=== PATIENT | female | born 1975 | race Hispanic/Latino ===

== ENCOUNTER 2017-12-06 14:25 | Emergency (ER) | payer SELFPAY ==
[~2017-12-06] VITALS: Ht 160 cm; Wt 113.4 kg
[2017-12-06] MEDS ORDERED: ONDANSETRON HCL INJ 2 MG/ML VIAL IV STA (14:32)
[2017-12-06] MEDS ORDERED: ONDANSETRON HCL 4 MG ORAL DISINTEGRATING TAB PO ONE (14:45)
[2017-12-06] MEDS ORDERED: SODIUM CHLORIDE 0.9% 1000ML 1,000 ML IV STA (14:47)
[2017-12-06] MEDS ORDERED: BUSPIRONE HCL5 MG PO (14:49)
[2017-12-06] MEDS ORDERED: SERTRALINE HCL100 MG PO (14:49)
[2017-12-06] MEDS ORDERED: ONDANSETRON HCL 4 MG ORAL DISINTEGRATING TAB ONE (15:34)
[2017-12-06 15:37] LABS: CLARITY,URINE SL CLOUDY (CLEAR); COLOR,URINE RED (YELLOW); KETONES,URINE NEGATIVE (NEGATIVE); LEUKOCYTE ESTERASE ,URINE NEGATIVE (NEGATIVE); NITRITE,URINE NEGATIVE (NEGATIVE); PROTEIN,URINE DIPSTICK 2+ (NEGATIVE)
[2017-12-06 15:38] LABS: BACTERIA,URINE FEW /HPF; BILIRUBIN,URINE NEGATIVE (NEGATIVE); EPITHELIAL CELLS,URINE FEW /LPF; RBC,URINE >50 /HPF (0-5); URINE UROBILINOGEN 0.2 mg/dL (0.2 - 1); WBC,URINE (MAN) 0-5 /HPF (0-5)
--- NOTE | 2017-12-06 15:42 | Diagnostic Imaging Report ---
History: Dizziness Comparison studies: None Technique: Axial images were obtained from the skull base to the vertex. Coronal and sagittal reconstructions obtained from the axial data. Findings: Scalp/skull: No abnormalities. No fractures, blastic or lytic lesions. Extra-axial spaces: No masses. No fluid collections. Brain sulci: Appropriate for age. Ventricles: Normal in size and configuration. No hydrocephalus. Parenchyma: No abnormal densities. No masses, hemorrhage, acute or chronic cortical vascular insults. Sellar/suprasellar region: No abnormalities Craniocervical junction: Patent foramen magnum. No Chiari one malformation. IMPRESSION: No abnormalities. Preliminary report provided by Dr. Jean on December 06, 2017 at 1542 hours Signed by: Dr. Jose Humphrey M.D. on 12/06/2017 5:18 PM
[2017-12-06 16:13] LABS: BASOPHILS % 0.4 % (0.0-1.0); EOSINOPHILS # (AUTO) 0.2 (0.0-0.4); EOSINOPHILS % 1.7 % (0.0-6.0); HEMATOCRIT 33.5 % (34.2-44.1); HEMOGLOBIN 10.4 g/dL (12.0-16.0); LYMPHOCYTES # (AUTO) 3.2 (1.0-3.2); LYMPHOCYTES % 33.7 % (18.0-39.1); MEAN CORPUSCULAR HEMOGLOBIN 25.5 pg (28-32); MEAN CORPUSCULAR VOLUME 82.1 fL (81-99); MONOCYTES # (AUTO) 0.6 (0.2-0.8); MONOCYTES % 5.8 % (4.4-11.3); NEUTROPHILS # (AUTO) 5.5 (2.1-6.9); PLATELET COUNT 253 x10e3/uL (140-360); RED BLOOD COUNT 4.08 x10e6/uL (3.6-5.1); RED CELL DISTRIBUTION WIDTH 15.4 % (11.7-14.4)
[2017-12-06 16:36] LABS: ALANINE AMINOTRANSFERASE 10 IU/L (0-55); ALBUMIN 3.1 g/dL (3.5-5.0); ALBUMIN/GLOBULIN RATIO 0.9 (0.8-2.0); ALKALINE PHOSPHATASE 66 IU/L (40-150); ANION GAP 10.6 mmol/L (8-16); BLOOD UREA NITROGEN 14 mg/dL (7-26); BUN/CREATININE RATIO 18 (6-25); CALCIUM 9.5 mg/dL (8.4-10.2); CARBON DIOXIDE 26 mmol/L (22-29); CHLORIDE 106 mmol/L (98-107); CREATINE KINASE 88 IU/L (29-168); EST GLOMERULAR FILTRATION RATE > 60 ML/MIN (60-); GLUCOSE 97 mg/dL (74-118); POTASSIUM 3.6 mmol/L (3.5-5.1); SODIUM 139 mmol/L (136-145)
[2017-12-06] MEDS ORDERED: IBUPROFEN 600 MG TAB PO STA (16:45)
== END 2017-12-06 18:05 | disposition home or self-care (01) ==
LOC: ER 14:25
DX: R42 Dizziness and giddiness (principal); R53.1 Weakness; R51 Headache; B34.9 Viral infection, unspecified; F41.9 Anxiety disorder, unspecified
CPT/HCPCS: 36415; 70450; 80053; 81001; 82550; 82553; 84484; 84702; 85025; 87086; 93005; 99284; J7030

== ENCOUNTER 2018-06-18 11:25 | Emergency (ER) | payer SELFPAY ==
[~2018-06-18] VITALS: Ht 160 cm; Wt 113.4 kg
[~2018-06-18 11:25] MED LIST: BUSPIRONE HCL5 MG PO; SERTRALINE HCL100 MG PO
--- OUTSIDE RECORDS SUMMARY | 2018-06-18 11:27 | XMS REPORT ---
Author Author [facility] Address Unknown Phone Unavailable Care Team [facility]iders [facility] Name Role Phone Emma GRUBER Unavailable Unavailable Problems This patient has no known problems. Allergies, Adverse Reactions, Alerts This patient has no known allergies or adverse reactions. Medications This patient has no known medications. 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 Coronal and sagittal reconstructions obtained from the axial data. Findings: Scalp/skull: No abnormalities. No fractures, blastic or lytic lesions. Extra-axial spaces: No masses. No fluid collections. Brain sulci: Appropriate for age. Ventricles: Normal in size and configuration. No hydrocephalus. Parenchyma: No abnormal densities. No masses, hemorrhage, acute or chronic cortical vascular insults. Sellar/suprasellar region: No abnormalities Craniocervical junction: Patent foramen magnum. No Chiari one malformation. IMPRESSION: No abnormalities. Preliminary report provided by Dr. Jean on December 06, 2017 at 1542 hours Signed by: Dr. Jose Humphrey M.D. on 12/06/2017 5:18 PM Dictated By: JOSE HUMPHREY MD, MD 17 Transcribed By: OLE on 12/06/171717 COPY TO: CORAL LAKHANI NP
[2018-06-18 12:30] LABS: BASOPHILS % 0.4 % (0.0-1.0); EOSINOPHILS # (AUTO) 0.3 (0.0-0.4); EOSINOPHILS % 3.7 % (0.0-6.0); HEMATOCRIT 36.4 % (34.2-44.1); HEMOGLOBIN 11.4 g/dL (12.0-16.0); LYMPHOCYTES # (AUTO) 3.7 (1.0-3.2); LYMPHOCYTES % 40.2 % (18.0-39.1); MEAN CORPUSCULAR HEMOGLOBIN 25.4 pg (28-32); MEAN CORPUSCULAR HGB CONC 31.3 g/dL (31-35); MEAN CORPUSCULAR VOLUME 81.1 fL (81-99); MONOCYTES # (AUTO) 0.5 (0.2-0.8); MONOCYTES % 5.6 % (4.4-11.3); NEUTROPHILS # (AUTO) 4.6 (2.1-6.9); NEUTROPHILS % 49.9 % (38.7-80.0); PLATELET COUNT 267 x10e3/uL (140-360); RED BLOOD COUNT 4.49 x10e6/uL (3.6-5.1); RED CELL DISTRIBUTION WIDTH 15.4 % (11.7-14.4)
[2018-06-18 12:47] LABS: CLARITY,URINE HAZY (CLEAR); COLOR,URINE YELLOW (YELLOW); KETONES,URINE NEGATIVE (NEGATIVE); LEUKOCYTE ESTERASE ,URINE NEGATIVE (NEGATIVE); NITRITE,URINE NEGATIVE (NEGATIVE); PROTEIN,URINE DIPSTICK NEGATIVE (NEGATIVE)
[2018-06-18 12:48] LABS: BILIRUBIN,URINE NEGATIVE (NEGATIVE); URINE UROBILINOGEN 0.2 mg/dL (0.2 - 1)
[2018-06-18 12:52] LABS: BACTERIA,URINE FEW /HPF; EPITHELIAL CELLS,URINE FEW /LPF; RBC,URINE 0-5 /HPF (0-5); WBC,URINE (MAN) 0-5 /HPF (0-5)
[2018-06-18 12:56] LABS: ALANINE AMINOTRANSFERASE 24 IU/L (0-55); ALBUMIN 3.5 g/dL (3.5-5.0); ALBUMIN/GLOBULIN RATIO 0.9 (0.8-2.0); ALKALINE PHOSPHATASE 68 IU/L (40-150); ANION GAP 13.9 mmol/L (8-16); BLOOD UREA NITROGEN 12 mg/dL (7-26); BUN/CREATININE RATIO 15 (6-25); CALCIUM 9.4 mg/dL (8.4-10.2); CARBON DIOXIDE 25 mmol/L (22-29); CHLORIDE 104 mmol/L (98-107); CREATINE KINASE 59 IU/L (29-168); EST GLOMERULAR FILTRATION RATE > 60 ML/MIN (60-); GLUCOSE 118 mg/dL (74-118); POTASSIUM 3.9 mmol/L (3.5-5.1); SODIUM 139 mmol/L (136-145)
--- NOTE | 2018-06-18 13:17 | Diagnostic Imaging Report ---
EXAMINATION: CHEST SINGLE (PORTABLE) INDICATION: CHEST PAIN COMPARISON: None FINDINGS: TUBES and LINES: None. LUNGS: Lungs are well inflated. Lungs are clear. There is no evidence of pneumonia or pulmonary edema. PLEURA: No pleural effusion or pneumothorax. HEART AND MEDIASTINUM: The cardiomediastinal silhouette is unremarkable. BONES AND SOFT TISSUES: No acute osseous lesion. Soft tissues are unremarkable. UPPER ABDOMEN: No free air under the diaphragm. IMPRESSION: No acute thoracic abnormality. Signed by: Dr. Elisabeth Cruz M.D. on 06/18/2018 1:13 PM
--- NOTE | 2018-06-18 13:26 | Diagnostic Imaging Report ---
CT BRAIN WO HISTORY: Headache, cough COMPARISON: Head CT 12/06/2017 TECHNIQUE: Noncontrast axial scans were obtained from skull base to the vertex. Coronal and sagittal reconstructions obtained from the axial data. One or more of the following dose reduction techniques were used: Automated exposure control, adjustment of the mA and/or kV according to patient size, and/or utilization of iterative reconstruction technique. DISCUSSION: Scalp/Skull: Unremarkable. Brain sulci: Appropriate for patient's age. Ventricles: Normal in size and configuration. No hydrocephalus. Extra-axial spaces: No masses or fluid collections. Parenchyma: No abnormal densities. No masses, hemorrhage, or large vascular territory acute infarct. Dural sinuses: No abnormal densities. Sellar/Suprasellar region: Intact. Skull base: Intact. Incidental findings: Nonspecific scattered paranasal sinus opacification is partially visualized. IMPRESSION: No intracranial abnormalities. Signed by: Dr. Randy Adams M.D. on 06/18/2018 1:23 PM
== END 2018-06-18 15:22 | disposition home or self-care (01) ==
LOC: ER 11:25
DX: R50.9 Fever, unspecified (principal); R05 Cough; H66.001 Acute suppurative otitis media without spontaneous rupture of ear drum, right ear; J06.9 Acute upper respiratory infection, unspecified; J01.00 Acute maxillary sinusitis, unspecified
CPT/HCPCS: 36415; 70450; 71045; 80053; 81001; 82550; 82553; 84484; 85025; 87400; 93005; 99284

== ENCOUNTER 2019-03-25 22:29 | Emergency (ER) | payer OTHER ==
[~2019-03-25] VITALS: Ht 160 cm; Wt 113.4 kg
[2019-03-25] MEDS ORDERED: ONDANSETRON HCL INJ 2MG/ML 2ML 2 MG/ML VIAL IV STA (22:40)
[2019-03-25] MEDS ORDERED: MORPHINE SULFATE INJ 4 MG/ML INJ 1ML IV STA (22:40)
--- NOTE | 2019-03-25 23:53 | Diagnostic Imaging Report ---
Examination: Single AP view of the chest. COMPARISON: 06/18/2018 INDICATION: Palpitations, chest pressure DISCUSSION: Lines/tubes: None. Lungs: The lungs are well inflated and clear. There is no evidence of pneumonia or pulmonary edema. Pleura: There is no pleural effusion or pneumothorax. Heart and mediastinum: The heart and the mediastinum are unremarkable. Bones and soft tissues: No acute bony abnormalities. IMPRESSION: 1. No acute cardiopulmonary abnormalities. Signed by: Dr. Dago Rutledge M.D. on 03/25/2019 11:50 PM
[2019-03-26 01:11] LABS: BASOPHILS % 0.3 % (0.0-1.0); EOSINOPHILS # (AUTO) 0.2 (0.0-0.4); EOSINOPHILS % 1.9 % (0.0-6.0); HEMATOCRIT 36.5 % (34.2-44.1); HEMOGLOBIN 10.9 g/dL (12.0-16.0); MEAN CORPUSCULAR HEMOGLOBIN 22.2 pg (28-32); MEAN CORPUSCULAR HGB CONC 29.9 g/dL (31-35); MEAN CORPUSCULAR VOLUME 74.3 fL (81-99); MONOCYTES # (AUTO) 0.6 (0.2-0.8); MONOCYTES % 6.7 % (4.4-11.3); NEUTROPHILS # (AUTO) 4.5 (2.1-6.9); NEUTROPHILS % 47.9 % (38.7-80.0); PLATELET COUNT 351 x10e3/uL (140-360); RED BLOOD COUNT 4.91 x10e6/uL (3.6-5.1); RED CELL DISTRIBUTION WIDTH 19.3 % (11.7-14.4)
[2019-03-26 01:32] LABS: ALANINE AMINOTRANSFERASE 58 IU/L (0-55); ALBUMIN 3.7 g/dL (3.5-5.0); ALBUMIN/GLOBULIN RATIO 0.9 (0.8-2.0); ALKALINE PHOSPHATASE 92 IU/L (40-150); ANION GAP 12.8 mmol/L (8-16); BLOOD UREA NITROGEN 9 mg/dL (7-26); BUN/CREATININE RATIO 11 (6-25); CALCIUM 9.5 mg/dL (8.4-10.2); CARBON DIOXIDE 24 mmol/L (22-29); CHLORIDE 107 mmol/L (98-107); CREATINE KINASE 105 IU/L (29-168); CREATININE, SERUM 0.81 mg/dL (0.57-1.11); EST GLOMERULAR FILTRATION RATE > 60 ML/MIN (60-); GLUCOSE 111 mg/dL (74-118); POTASSIUM 3.8 mmol/L (3.5-5.1); SODIUM 140 mmol/L (136-145)
[2019-03-26 01:44] LABS: CREATINE KINASE MB < 1.00 ng/mL (0-4.3)
[2019-03-26 02:10] LABS: HCG,QUANTITATIVE < 1.20 mIU/mL (0-10)
== END 2019-03-26 03:23 | disposition home or self-care (01) ==
LOC: ER 22:29
DX: R00.2 Palpitations (principal); R07.89 Other chest pain; I49.1 Atrial premature depolarization
CPT/HCPCS: 36415; 71045; 80053; 82550; 82553; 83880; 84484; 84702; 85025; 93005; 99283

== ENCOUNTER 2019-06-07 08:36 | Emergency (ER) | payer OTHER ==
[~2019-06-07] VITALS: Ht 160 cm; Wt 128.8 kg
[2019-06-07] MEDS ORDERED: SODIUM CHLORIDE 0.9% 1000ML 1,000 ML IV STA (08:53)
[2019-06-07] MEDS ORDERED: PANTOPRAZOLE 40 MG 10ML VIAL IV ONE (09:15)
[2019-06-07 09:35] LABS: BASOPHILS % 0.2 % (0.0-1.0); BILIRUBIN,URINE NEGATIVE (NEGATIVE); CLARITY,URINE CLEAR (CLEAR); COLOR,URINE YELLOW (YELLOW); EOSINOPHILS # (AUTO) 0.1 (0.0-0.4); EOSINOPHILS % 1.2 % (0.0-6.0); HEMATOCRIT 33.9 % (34.2-44.1); HEMOGLOBIN 10.1 g/dL (12.0-16.0); KETONES,URINE NEGATIVE (NEGATIVE); LEUKOCYTE ESTERASE ,URINE NEGATIVE (NEGATIVE); LYMPHOCYTES # (AUTO) 3.4 (1.0-3.2); LYMPHOCYTES % 32.1 % (18.0-39.1); MEAN CORPUSCULAR HEMOGLOBIN 22.3 pg (28-32); MEAN CORPUSCULAR HGB CONC 29.8 g/dL (31-35); MONOCYTES # (AUTO) 0.6 (0.2-0.8); MONOCYTES % 5.3 % (4.4-11.3); NEUTROPHILS # (AUTO) 6.4 (2.1-6.9); NEUTROPHILS % 60.7 % (38.7-80.0); NITRITE,URINE NEGATIVE (NEGATIVE); PLATELET COUNT 307 x10e3/uL (140-360); PROTEIN,URINE DIPSTICK NEGATIVE (NEGATIVE); RED BLOOD COUNT 4.52 x10e6/uL (3.6-5.1); RED CELL DISTRIBUTION WIDTH 17.5 % (11.7-14.4); URINE UROBILINOGEN 0.2 mg/dL (0.2 - 1)
[2019-06-07 09:44] LABS: BACTERIA,URINE RARE /HPF; EPITHELIAL CELLS,URINE FEW /LPF; RBC,URINE 0-5 /HPF (0-5); WBC,URINE (MAN) 0-5 /HPF (0-5)
--- NOTE | 2019-06-07 09:52 | Diagnostic Imaging Report ---
EXAMINATION: CHEST 2 VIEWS INDICATION: Abdominal pain COMPARISON: None FINDINGS: LINES/TUBES:EKG leads overlie the chest. LUNGS:The lungs are moderately inflated. No focal consolidation or pulmonary edema. PLEURA:No pleural effusion or pneumothorax. MEDIASTINUM:The cardiomediastinal silhouette appears normal in size and shape. BONES/SOFT TISSUES:No acute osseous injury. ABDOMEN:No free air under the diaphragm. IMPRESSION: No focal pneumonia or pulmonary edema. Signed by: Wei Webber MD on 06/07/2019 9:49 AM
[2019-06-07 09:55] LABS: ALANINE AMINOTRANSFERASE 22 IU/L (0-55); ALBUMIN 3.4 g/dL (3.5-5.0); ALKALINE PHOSPHATASE 96 IU/L (40-150); ANION GAP 12.1 mmol/L (8-16); BLOOD UREA NITROGEN 11 mg/dL (7-26); BUN/CREATININE RATIO 13 (6-25); CALCIUM 8.9 mg/dL (8.4-10.2); CARBON DIOXIDE 26 mmol/L (22-29); CHLORIDE 101 mmol/L (98-107); CREATINE KINASE 144 IU/L (29-168); CREATININE, SERUM 0.87 mg/dL (0.57-1.11); EST GLOMERULAR FILTRATION RATE > 60 ML/MIN (60-); GLUCOSE 193 mg/dL (74-118); LIPASE 28 U/L (8-78); POTASSIUM 4.1 mmol/L (3.5-5.1); SODIUM 135 mmol/L (136-145)
--- NOTE | 2019-06-07 10:14 | Diagnostic Imaging Report ---
EXAM: Right upper quadrant abdominal ultrasound INDICATION: Right upper quadrant pain COMPARISON: None. TECHNIQUE: Transverse and longitudinal images of the right upper quadrant abdomen were obtained FINDINGS: Liver: Size: 17.3 cm in the right midclavicular line, enlarged Appearance: Increased echogenicity, smooth contour Mass: No focal masses Gallbladder: No gallbladder distension, pericholecystic fluid, wall thickening, stone, or reported sonographic Masters's sign. Gallbladder wall measures 3 millimeters Bile Ducts: Intrahepatic Ducts: No dilatation Extrahepatic Ducts: Common bile duct measures 3 mm, no dilatation Pancreas: Visualized portions of the pancreatic head, neck and proximal body are normal. Kidney: The right kidney measures 11.9 cm without evidence of hydronephrosis or stone. Vessels: Aorta: Visualized portions are normal Inferior Vena Cava: Visualized portions are normal Main Portal Vein: 1.3 cm, normal size with hepatopetal flow. Free Fluid: No ascites or pleural effusion IMPRESSION: Hepatic steatosis and mild hepatomegaly. No cholelithiasis or sonographic evidence of cholecystitis. Signed by: Wei Webber MD on 06/07/2019 10:11 AM
[2019-06-07] MEDS ORDERED: SODIUM CHLORIDE 0.9% 1000ML 1,000 ML ONE (10:23)
== END 2019-06-07 10:51 | disposition home or self-care (01) ==
LOC: ER 08:36
DX: R10.13 Epigastric pain (principal); R11.0 Nausea; R07.89 Other chest pain
CPT/HCPCS: 36415; 71046; 76705; 80053; 81001; 82550; 82553; 83690; 84484; 85025; 93005; 99284; C9113; J7030

== ENCOUNTER 2019-12-18 13:00 | Emergency (ER) | payer OTHER ==
[~2019-12-18] VITALS: Ht 160 cm; Wt 128.8 kg
--- OUTSIDE RECORDS SUMMARY | 2019-12-18 13:03 | XMS REPORT ---
Author Author [facility] Organization [facility] Address 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 Allergies, Adverse Reactions, Alerts Allergy Name Allergy Type Status Severity Reaction(s) Onset Date Inacti ve Date Treating Clinician Comments Source Morphine Allergy to Substance Active Mild 2019-06-07 00:00:00 [facility] Medications Ordered Medication Name Filled Medication Name Start Date Stop Da te Current Medication? Ordering Clinician Indication Dosage Frequency Signature (SIG) Comments Components Source Buspirone Hcl 5 Mg Tablet Buspirone Hcl 5 Mg Tablet Yes 10 Twice A Day [facility] Sertraline Hcl 100 Mg Tablet Sertraline Hcl 100 Mg Tablet Y es 100 Bedtime [facility] Procedures Procedure Date / Time Performed Performing Clinician Sour e X-ray of chest, two views 2019-06-07 00:00:00 MILESCORAL [facility], [facility] US Gallbladder 2019-06-07 00:00:00 CORAL MILES [facility] X-ray of chest, single view 2019-03-25 00:00:00 CORAL MILES [facility] Encounters Start Date/Time End Date/Time Encounter Type Admission Type Attendi [facility] Care Department Encounter ID Source 2019-06-07 08:36:00 2019-06-07 10:51:00 Departed Emergency Room 1 CORAL MILES [facility] [id number] [facility] 2019-03-25 22:29:00 2019-03-26 03:23:00 Departed Emergency Room 1 GINGER CORAL [facility] [id number] [facility] 2018-06-18 11:25:00 2018-06-18 15:22:00 Departed Emergency Room 1 JEROMY HENRY [facility] [id number] [facility] 2017-12-06 14:25:00 2017-12-06 18:05:00 Departed Emergency Room 1 LIAM GRUBER [facility] [id number] [facility] Results Test Description Test Time Test Comments Results Result Comments Source US GALLBLADDER 2019-06-07 10:09:00 [facility] [address] [place] [address] Patient Name: HANS MCCARTHY MR #: [id number] : 1975 Age/Sex: 43/F Req #: [id number] Adm Physician: Ordered by: CORAL MILES DO Report #: [id number] Location: ER Room/Bed: Procedure: [id number] US/US GALLBLADDER Exam Date: Exam Time: REPORT STATUS: Signed EXAM: Right upper quadrant abdominal ultrasound INDICATION: Right upper quadrant pain COMPARISON: None. TECHNIQUE: Transverse and longitudinal images of the right upper quadrant abdomen were obtained FINDINGS: Liver: Size: 17.3 cm in the right midclavicular line, enlarged Appearance: Increased echogenicity, smooth contour Mass: No focal masses Gallbladder: No gallbladder distension, pericholecystic fluid, wall thickening, stone, or reported sonographic Masters's sign. Gallbladder wall measures 3 millimeters Bile Ducts: Intrahepatic Ducts: No dilatation Extrahepatic Ducts: Common bile duct measures 3 mm, no dilatation Pancreas: Visualized portions of the pancreatic head, neck and proximal body are normal. Kidney: The right kidney measures 11.9 cm without evidence of hydronephrosis or stone. Vessels: Aorta: Visualized portions are normal Inferior Vena Cava: Visualized portions are normal Main Portal Vein: 1.3 cm, normal size with hepatopetal flow. Free Fluid: No ascites or pleural effusion IMPRESSION: Hepatic steatosis and mild hepatomegaly. No cholelithiasis or sonographic evidence of cholecystitis. Signed by: Melissa Ram MD on 06/07/2019 10:11 AM Dictated By: MELISSA RAM MD 1011 Transcribed By: OLE on 06/07/19 1011 COPY TO: CORAL MILES DO Sodium Level 2019-06-07 10:04:00 Test Item Sodium Level (test code = 2951-2) 135 136-145 [facility] Jlmqs5405-69-08 10:04:00* Test Item Value Reference Range Interpretation Comments Potassium Level (test code = 2823-3) 4.1 3.5-5.1 [facility] TexasChloride Yxtbn8038-71-30 10:04:00* Test Item Value Reference Range Interpretation Comments Chloride Level (test code = 2075-0) 101 98-107 [facility] TexasCarbon Dioxide Ybscw3881-81-96 10:04:00* Test Item Value Reference Range Interpretation Comments Carbon Dioxide Level (test code = 2028-9) 26 22-29 [facility] TexasAnion [id number] 10:04:00* Test Item Value Reference Range Interpretation Comments Anion Gap (test code = 75849-0) 12.1 8-16 [facility] TexasBlood Urea Xltwdxzx2541-57-34 10:04:00* Test Item Value Reference Range Interpretation Comments Blood Urea Nitrogen (test code = 3094-0) 11 7-26 [facility] TexasCreatinine2019-11-12 10:04:00* Test Item Value Reference Range Interpretation Comments Creatinine (test code = 2160-0) 0.87 0.57-1.11 [facility] TexasBUN/Creatinine Qrdxa8168-28-77 10:04:00* Test Item Value Reference Range Interpretation Comments BUN/Creatinine Ratio (test code = 3097-3) 13 01-18 [facility] TexasEstimat Glomerular Filtration Rate 2019-06-07 10:04:00* Test Item Value Reference Range Interpretation Comments Estimat Glomerular Filtration Rate (test code = 981486174) > 60 >60 Ranges were taken from the National Kidney Disease Education Program and the [facility] literature.Reference ranges:60 or greater: Tpqpiy48-77 ( for 3 consecutive months): Chronic kidney disease 15 or less: Kidney failureWoman's Hospital of TexasGlucose Uqqjp7749-27-86 10:04:00* Test Item Value Reference Range Interpretation Comments Glucose Level (test code = XXQ7378) 193 74-118 [facility] TexasCalcium Qxpys0336-56-51 10:04:00* Test Item Value Reference Range Interpretation Comments Calcium Level (test code = 12632-1) 8.9 8.4-10.2 [facility] TexasTotal Bcndzhlcf8062-05-54 10:04:00* Test Item Value Reference Range Interpretation Comments Total Bilirubin (test code = 1975-2) 0.3 0.2-1.2 [facility] TexasAspartate Amino Transf (AST/SGOT) 2019-06-07 10:04:00* Test Item Value Reference Range Interpretation Comments Aspartate Amino Transf (AST/SGOT) (test code = Aspartate Amino Transf (AST/SGOT)) 22 5-34 [facility] TexasAlanine Aminotransferase (ALT/SGPT) 2019-06-07 10:04:00* Test Item Value Reference Range Interpretation Comments Alanine Aminotransferase (ALT/SGPT) (test code = 1742-6) 22 0-55 [facility] TexasTotal Lvhciiq3972-62-62 10:04:00* Test Item Value Reference Range Interpretation Comments Total Protein (test code = 2885-2) 6.9 6.5-8.1 [facility] TexasAlbumin2019-11-12 10:04:00* Test Item Value Reference Range Interpretation Comments Albumin (test code = 1751-7) 3.4 3.5-5.0 [facility] TexasGlobulin2019-11-12 10:04:00* Test Item Value Reference Range Interpretation Comments Globulin (test code = 39902-0) 3.5 2.3-3.5 [facility] TexasAlbumin/Globulin Dorqr8909-26-79 10:04:00 * Test Item Value Reference Range Interpretation Comments Albumin/Globulin Ratio (test code = 1759-0) 1.0 0.8-2.0 [facility] TexasAlkaline Ptvuwfigeyc7360-88-03 10:04:00* Test Item Value Reference Range Interpretation Comments Alkaline Phosphatase (test code = 6768-6) 96 40-150 [facility] TexasCreatine Oenghn1999-72-08 10:04:00* Test Item Value Reference Range Interpretation Comments Creatine Kinase (test code = 2157-6) 144 29-168 [facility] TexasCreatine Kinase ZC2436-29-11 10:04:00* Test Item Value Reference Range Interpretation Comments Creatine Kinase MB (test code = 06820-5) 1.40 0-5.0 [facility] TexasTroponin I7495-34-14 10:04:00* Test Item Value Reference Range Interpretation Comments Troponin I (test code = QRN7797) 0.009 0-0.300 [facility] TexasLipase2019-11-12 10:04:00* Test Item Value Reference Range Interpretation Comments Lipase (test code = 3040-3) 28 8-78 [facility] TexasCHEST 2 FRQNW0649-03-69 09:48:00 [facility] [address] [place] [address] Patient Name: HANS MCCARTHY MR #: [id number] : 1975 Age/Sex: 43/F Req #: [id number] Adm Physician: Ordered by: CORAL MILES DO Report #: [id number] Location: ER Room/Bed: Procedure: [id number] DX/CH EST 2 VIEWS Exam Date: 06/07/19 Exam Time: 914 REPORT STATUS: Signed EXAMINATION: CHEST 2 VIEWS INDICATION: Abdominal pain COMPARISON: None FINDINGS: LINES/TUBES:EKG leads overlie the chest. LUNGS:The lungs a re moderately inflated. No focal consolidation or pulmonary edema. PLEURA :No pleural effusion or pneumothorax. MEDIASTINUM:The cardiomediastinal phill houette appears normal in size and shape. BONES/SOFT TISSUES:No acute osseo us injury. ABDOMEN:No free air under the diaphragm. IMPRESSION: No focal pneumonia or pulmonary edema. Signed by: Melissa Ram MD on 9:49 AM Dictated By: MELISSA RAM MD 8 Transcribed By: OLE on 06/07/19948 COPY TO: CORAL MILES DO Urine FMG8099-12-18 09:44:00* Test Item Value Reference Range Interpretation Comments Urine WBC (test code = 5821-4) 0-5 0-5 [facility] TEP3827-65-84 09:44:00* Test Item Value Reference Range Interpretation Comments Urine RBC (test code = 64117-5) 0-5 0-5 [facility] TexasU[facility] Xfjindhf4053-91-32 09:44:00* Test Item Value Reference Range Interpretation Comments Urine Bacteria (test code = 62865-1) RARE NONE [facility] Texas[facility] Epithelial Jgatn7059-88-24 09:44:00 * Test Item Value Reference Range Interpretation Comments Urine Epithelial Cells (test code = 45036-4) FEW NONE [facility] TexasU[facility] Lyufl2042-43-37 09:41:00* Test Item Value Reference Range Interpretation Comments Urine Color (test code = 5778-6) YELLOW YELLOW [facility] TexasUrine Cvsahku9003-86-13 09:41:00* Test Item Value Reference Range Interpretation Comments Urine Clarity (test code = 75271-4) CLEAR CLEAR [facility] TexasU[facility] Specific Kkdbpgc1545-08-95 09:41:00 * Test Item Value Reference Range Interpretation Comments Urine Specific [place] (test code = 5811-5) 1.020 1.010-1.02 5 [facility] TexasUrine hO6387-14-31 09:41:00* Test Item Value Reference Range Interpretation Comments Urine pH (test code = 47397-9) 7 5-7 [facility] Leukocyte Pyjgastq3224-43-47 09:41:00* Test Item Value Reference Range Interpretation Comments Urine Leukocyte Esterase (test code = 43000-8) NEGATIVE NEGATIV E [facility] TexasU[facility] Rpbzdou7292-84-88 09:41:00* Test Item Value Reference Range Interpretation Comments Urine Nitrite (test code = 33439-5) NEGATIVE NEGATIVE [facility] TexasU[facility] Bxcfesh8588-23-06 09:41:00* Test Item Value Reference Range Interpretation Comments Urine Protein (test code = 42133-7) NEGATIVE NEGATIVE [facility] TexasU[facility] Glucose (UA)2019-06-07 09:41:00* Test Item Value Reference Range Interpretation Comments Urine Glucose (UA) (test code = 72398-9) NEGATIVE NEGATIVE [facility] TexasUrine Mmbkzct7660-40-38 09:41:00* Test Item Value Reference Range Interpretation Comments Urine Ketones (test code = 47289-1) NEGATIVE NEGATIVE [facility] TexasU[facility] Sypiuohluaaq7765-20-21 09:41:00* Test Item Value Reference Range Interpretation Comments Urine Urobilinogen (test code = 69499-4) 0.2 0.2-1 [facility] TexasU[facility] Hpfdjasla2661-59-55 09:41:00* Test Item Value Reference Range Interpretation Comments Urine Bilirubin (test code = 1977-8) NEGATIVE NEGATIVE [facility] TexasU[facility] Rzpsp2796-27-50 09:41:00* Test Item Value Reference Range Interpretation Comments Urine Blood (test code = 57474-3) NEGATIVE NEGATIVE [facility] TexasWhite Blood Zbufh1651-43-09 09:39:00* Test Item Value Reference Range Interpretation Comments White Blood Count (test code = 6690-2) 10.53 4.8-10.8 [facility] TexasRed Blood Lnets4431-62-25 09:39:00* Test Item Value Reference Range Interpretation Comments Red Blood Count (test code = 789-8) 4.52 3.6-5.1 [facility] TexasHemoglobin2019-11-12 09:39:00* Test Item Value Reference Range Interpretation Comments Hemoglobin (test code = 64109-8) 10.1 12.0-16.0 [facility] TexasHematocrit2019-11-12 09:39:00* Test Item Value Reference Range Interpretation Comments Hematocrit (test code = 4544-3) 33.9 34.2-44.1 [facility] TexasMean Corpuscular Xzusmp4207-10-52 09:39:00* Test Item Value Reference Range Interpretation Comments Mean Corpuscular Volume (test code = 787-2) 75.0 81-99 [facility] TexasMean Corpuscular Mexhxgqkgh0264-06-61 09:39:00* Test Item Value Reference Range Interpretation Comments Mean Corpuscular Hemoglobin (test code = 785-6) 22.3 28-32 [facility] TexasMean Corpuscular Hemoglobin Concent 2019-06-07 09:39:00* Test Item Value Reference Range Interpretation Comments Mean Corpuscular Hemoglobin Concent (test code = 786-4) 29.8 31-35 [facility] TexasRed Cell Distribution Xvfzz2452-05-98 09:39:00* Test Item Value Reference Range Interpretation Comments Red Cell Distribution Width (test code = 59080-7) 17.5 11.7 -14.4 [facility] TexasPlatelet Jxkin8923-99-40 09:39:00* Test Item Value Reference Range Interpretation Comments Platelet Count (test code = 777-3) 307 140-360 [facility] TexasNeutrophils (%) (Auto)2019-06-07 09:39:00 * Test Item Value Reference Range Interpretation Comments Neutrophils (%) (Auto) (test code = 54790-7) 60.7 38.7-80.0 [facility] TexasLymphocytes (%) (Auto)2019-06-07 09:39:00 * Test Item Value Reference Range Interpretation Comments Lymphocytes (%) (Auto) (test code = 736-9) 32.1 18.0-39.1 [facility] TexasMonocytes (%) (Auto)2019-06-07 09:39:00* Test Item Value Reference Range Interpretation Comments Monocytes (%) (Auto) (test code = 5905-5) 5.3 4.4-11.3 [facility] TexasEosinophils (%) (Auto)2019-06-07 09:39:00 * Test Item Value Reference Range Interpretation Comments Eosinophils (%) (Auto) (test code = 713-8) 1.2 0.0-6.0 [facility] TexasBasophils (%) (Auto)2019-06-07 09:39:00* Test Item Value Reference Range Interpretation Comments Basophils (%) (Auto) (test code = 706-2) 0.2 0.0-1.0 [facility] TexasIM GRANULOCYTES %2019-06-07 09:39:00* Test Item Value Reference Range Interpretation Comments IM GRANULOCYTES % (test code = IM GRANULOCYTES %) 0.5 0.0- 1.0 [facility] TexasNeutrophils # (Auto)2019-06-07 09:39:00* Test Item Value Reference Range Interpretation Comments Neutrophils # (Auto) (test code = 751-8) 6.4 2.1-6.9 [facility] TexasLymphocytes # (Auto)2019-06-07 09:39:00* Test Item Value Reference Range Interpretation Comments Lymphocytes # (Auto) (test code = 21491-0) 3.4 1.0-3.2 [facility] TexasMonocytes # (Auto)2019-06-07 09:39:00* Test Item Value Reference Range Interpretation Comments Monocytes # (Auto) (test code = 742-7) 0.6 0.2-0.8 [facility] TexasEosinophils # (Auto)2019-06-07 09:39:00* Test Item Value Reference Range Interpretation Comments Eosinophils # (Auto) (test code = 711-2) 0.1 0.0-0.4 [facility] TexasBasophils # (Auto)2019-06-07 09:39:00* Test Item Value Reference Range Interpretation Comments Basophils # (Auto) (test code = 704-7) 0.0 0.0-0.1 [facility] TexasAbsolute Immature Granulocyte (auto 2019-06-07 09:39:00* Test Item Value Reference Range Interpretation Comments Absolute Immature Granulocyte (auto (eduardo t code = Absolute Immature Granulocyte (auto) 0.05 0-0.1 [facility] TexasHuman Chorionic Gonadotropin, Quant 2019-03-26 02:13:00* Test Item Value Reference Range Interpretation Comments Human Chorionic Gonadotropin, Quant (test code = 72625-4) < 1.20 0-10 [facility] TexasB-Type Natriuretic Rwcukzt9055-26-38 01:50:00* Test Item Value Reference Range Interpretation Comments B-Type Natriuretic Peptide (test code = 12166-7) < 12.0 0-100 [facility] TexasCHEST SINGLE (NOT PORTABLE)2019-03-25 23:48:00 [facility] [address] [place] [address] Patient Name: HANS MCCARTHY MR #: [id number] : 1975 Age/Sex: 43/F Req #: [id number] Adm Physician: Ordered by: CORAL MILES DO Report #: [id number] Location: ER Room/Bed: Procedure: [id number] D X/CHEST SINGLE (NOT PORTABLE) Exam Date: 03/25/19 Ex am Time: 2325 REPORT STATUS: Signed Examination: Single AP view of the chest. COMPARISON: 06/18/2018 I NDICATION: Palpitations, chest pressure DISCUSSION: Lines/tubes: None. Lungs: The lungs are well inflated and clear. There is no evidence of pneumonia or pulmonary edema. Pleura: There is no pleural effusion or pneumothorax. Heart and mediastinum: The heart and the mediastinum are un remarkable. Bones and soft tissues: No acute bony abnormalities. IM PRESSION: 1. No acute cardiopulmonary abnormalities. Signed by: Dr. Micki Rutledge M.D. on 03/25/2019 11:50 PM Dictated By: MICKI RUTLEDGE MD 49 Transcribed By: ABEBE HERNANDEZ on 03/25/19 235 COPY TO: CORAL MILES DO CT BRAIN WO 2018-06-18 13:20:[address] [address] Patient Name: HANS MCCARTHY MR #: [id number] : 1975 Age/Sex: 42/F Req #: [id number] Adm Physician: Ordered by: JEROMY HENRY MD Report #: [id number] Location: ER Room/Bed: Procedure: [id number] C T/CT BRAIN WO Exam Date: 06/18/18 Exam Time: 1254 REPORT STATUS: Signed CT BRAIN WO HISTORY: Headache, cough COMPARISON: Head CT 12/06/2017 TECHNIQUE: Noncontrast axial scans were obtained from skull base to the vertex. Coronal and sagittal reconstructions obtained from the axial data. One or more of the following dose reduction techniques were used: Automated exposure control, adjustment of the mA and/or kV according to patient size, and/or utilization of iterative reconstruction technique. DISCUSSION: Scalp/Skull: Unre markable. Brain sulci: Appropriate for patient's age. Ventricles: Normal in size and configuration. No hydrocephalus. Extra-axial spaces: No masses or fl uid collections. Parenchyma: No abnormal densities. No masses, he morrhage, or large vascular territory acute infarct. Dural sinuses: No abn ormal densities. Sellar/Suprasellar region: Intact. Skull base: Intact. In cidental findings: Nonspecific scattered paranasal sinus opacification is part ially visualized. IMPRESSION: No intracranial abnormalities. Signed by: Dr. Randy Adams M.D. on 06/18/2018 1:23 PM Dictated By: RANDY ADAMS MD 1 323 Transcribed By: OLE on 06/18/18 1324 COPY TO: JEROMY HENRY MD CHEST SINGLE (PORTABLE)2018-06-18 13:13:00 [place] [address] Patient Name: HANS MCCARTHY MR #: [id number] : 1975 Age/Sex: 42/F Req #: [id number] Adm Physician: Ordered by: JEROMY HENRY MD Report #: [id number] Location: ER Room/Bed: Procedure: [id number] D X/CHEST SINGLE (PORTABLE) Exam Date: 06/18/18 Exam T josiane: 1254 REPORT STATUS: Signed EXAMINATION: CHEST SINGLE (PORTABLE) INDICATION: CHEST PAIN CO MPARISON: None FINDINGS: TUBES and LINES: None. LUNGS: Lungs are well inflated. Lungs are clear. There is no evidence of pneumonia or p ulmonary edema. PLEURA: No pleural effusion or pneumothorax. HEART AN D MEDIASTINUM: The cardiomediastinal silhouette is unremarkable. BONES AND SOFT TISSUES: No acute osseous lesion. Soft tissues are unremarkable. UPPER ABDOMEN: No free air under the diaphragm. IMPRESSION: No a cute thoracic abnormality. Signed by: Dr. Elisabeth Boudreaux M.D. on 06/18/2018 1:13 PM Dictated By: JESSEE BOUDREAUX MD, MD Electronically Sign ed By: JESSEE BOUDREAUX MD, MD on 06/18/18 1313 Transcribed By: OLE on 8 1313 COPY TO: JEROMY HENRY MD CT BRAIN [place] [address] Patient Name: HANS MCCARTHY MR #: [id number] : 1975 Age/Sex: 42/F Req #: [id number] Adm Physician: Ordered by: CORAL LAKHANI NP Report #: [id number] Location: ER Room/Bed: Procedure: [id number] CT/CT BRAIN WO Exam Date : 12/06/17 Exam Time: 1520 REPORT STATUS: Summer d History: Dizziness Comparison studies: None Technique: Axia l images were obtained from the skull base to the vertex. Coronal and sagitt al reconstructions obtained from the axial data. Findings: Scalp/skull : No abnormalities. No fractures, blastic or lytic lesions. Extra-axial spaces: No masses. No fluid collections. Brain sulci: Appropriate for a ge. Ventricles: Normal in size and configuration. No hydrocephalus. Paren chyma: No abnormal densities. No masses, hemorrhage, acute or chronic chris ical vascular insults. Sellar/suprasellar region: No abnormalities Cranio cervical junction: Patent foramen magnum. No Chiari one malformation. IMPR ESSION: No abnormalities. Preliminary report provided by Dr. Ted french December 06, 2017 at 1542 hours Signed by: Dr. Jose Zarate M.D. on 11/24 5:18 PM Dictated By: JOSE ZARATE MD, MD Electronically Si gned By: JOSE ZARATE MD, MD on 12/06/171717 Transcribed By: OLE on 12/06/171717 COPY TO: CORAL LAKHANI NP
[2019-12-18] MEDS ORDERED: SODIUM CHLORIDE 0.9% 1000ML 1,000 ML IV STA (13:40)
[2019-12-18 13:47] LABS: BASOPHILS % 0.1 % (0.0-1.0); EOSINOPHILS # (AUTO) 0.1 (0.0-0.4); EOSINOPHILS % 1.5 % (0.0-6.0); HEMATOCRIT 36.1 % (34.2-44.1); HEMOGLOBIN 10.6 g/dL (12.0-16.0); LYMPHOCYTES # (AUTO) 3.4 (1.0-3.2); LYMPHOCYTES % 35.8 % (18.0-39.1); MEAN CORPUSCULAR HEMOGLOBIN 22.6 pg (28-32); MEAN CORPUSCULAR HGB CONC 29.4 g/dL (31-35); MEAN CORPUSCULAR VOLUME 76.8 fL (81-99); MONOCYTES # (AUTO) 0.4 (0.2-0.8); MONOCYTES % 4.7 % (4.4-11.3); NEUTROPHILS # (AUTO) 5.4 (2.1-6.9); NEUTROPHILS % 57.6 % (38.7-80.0); PLATELET COUNT 335 x10e3/uL (140-360); RED CELL DISTRIBUTION WIDTH 16.9 % (11.7-14.4)
[2019-12-18 13:51] LABS: CLARITY,URINE SL CLOUDY (CLEAR); COLOR,URINE ORANGE (YELLOW); LEUKOCYTE ESTERASE ,URINE NEGATIVE (NEGATIVE)
[2019-12-18 13:52] LABS: BILIRUBIN,URINE NEGATIVE (NEGATIVE); KETONES,URINE NEGATIVE (NEGATIVE); NITRITE,URINE NEGATIVE (NEGATIVE); PROTEIN,URINE DIPSTICK 2+ (NEGATIVE); URINE UROBILINOGEN 0.2 mg/dL (0.2 - 1)
[2019-12-18 13:53] LABS: PREGNANCY TEST, URINE NEGATIVE (NEGATIVE)
[2019-12-18 14:00] LABS: ALANINE AMINOTRANSFERASE 33 IU/L (0-55); ALBUMIN 3.6 g/dL (3.5-5.0); ALBUMIN/GLOBULIN RATIO 0.9 (0.8-2.0); ALKALINE PHOSPHATASE 80 IU/L (40-150); ANION GAP 17.2 mmol/L (8-16); CALCIUM 9.5 mg/dL (8.4-10.2); CARBON DIOXIDE 20 mmol/L (22-29); CHLORIDE 106 mmol/L (98-107); CREATINE KINASE 71 IU/L (29-168); CREATININE, SERUM 0.94 mg/dL (0.57-1.11); EST GLOMERULAR FILTRATION RATE > 60 ML/MIN (60-); GLUCOSE 188 mg/dL (74-118); POTASSIUM 4.2 mmol/L (3.5-5.1); SODIUM 139 mmol/L (136-145)
[2019-12-18 14:02] LABS: RBC,URINE >50 /HPF (0-5)
[2019-12-18 14:03] LABS: BACTERIA,URINE FEW /HPF; EPITHELIAL CELLS,URINE MODERATE /LPF
--- NOTE | 2019-12-18 14:32 | Emergency Department Note ---
History of Present Illnes History of Present Illness Chief Complaint: Abdominal Complaints History of Present Illness This is a 44 year old female with epigastric abdominal pain. 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 Any updates have been documented here. Past Medical History Recent Fever: No Clinical Suspicion of Infectio: No New/Unexplained Change in Ment: No Past Medical History: Diabetes, CVA, Anxiety, GERD, Hyperlipedemia Other Medical History: SEIZURES DURING CHILDHOOD CVA AUG 2018 BORDERLINE DM Past Surgical History: Tubal Ligation Social History Smoking Cessation: Former smoker Counseling Performed: Yes Alcohol Use: None Any Illegal Drug Use: No TB Exposure/Symptoms: No Physically hurt or threatened: No Other Last Tetanus: Unknown Any Pre-Existing Lines (PICC,: No Is patient up to date on immun: Yes Last Flu: na Last Pneumovax: na Review of Systems Review of Systems Constitutional: no symptoms EENTM: no symptoms Cardiovascular: no symptoms Respiratory: no symptoms Gastrointestinal: abdominal pain; nausea, vomiting Genitourinary: no symptoms Musculoskeletal: no symptoms Neurological: no symptoms Psychological: no symptoms Endocrine: no symptoms Hematological/Lymphatic: no symptoms Review of other systems All other systems reviewed and negative. Physical Exam Related Data Triage Vital Signs Vital Signs Date Time Temp Pulse Resp B/P (MAP) Pulse Ox O2 Delivery O2 Flow Rate FiO2 12/18/19 13:05 98.5 97 20 124/104 100 Vital signs reviewed: Yes Physical Exam CONSTITUTIONAL Constitutional: well-developed, well-nourished HENT HENT: normocephalic, atraumatic, oropharynx clear/moist, nose normal HENT L/R: left ext ear normal, right ext ear normal EYES Eyes: PERRL, conjunctivae normal NECK Neck: ROM normal PULMONARY Pulmonary: effort normal, breath sounds normal CARDIOVASCULAR Cardiovascular: regular rhythm, heart sounds normal, capillary refill normal, normal rate GASTROINTESTINAL Abdominal: soft, nontender, bowel sounds normal GENITOURINARY Genitourinary: exam deferred SKIN Skin: warm, dry MUSCULOSKELETAL Musculoskeletal: ROM normal NEUROLOGICAL Neurological: alert, oriented x 3, no gross motor or sensory deficits PSYCHOLOGICAL Psychological: mood/affect normal, judgement normal Results Laboratory Result Diagram: 12/18/19 1312 12/18/19 1312 Laboratory Laboratory Tests Test 12/18/19 13:12 White Blood Count 9.35 x10e3/uL (4.8-10.8) Red Blood Count 4.70 x10e6/uL (3.6-5.1) Hemoglobin 10.6 g/dL (12.0-16.0) Hematocrit 36.1 % (34.2-44.1) Mean Corpuscular Volume 76.8 fL (81-99) Mean Corpuscular Hemoglobin 22.6 pg (28-32) Mean Corpuscular Hemoglobin Concent 29.4 g/dL (31-35) Red Cell Distribution Width 16.9 % (11.7-14.4) Platelet Count 335 x10e3/uL (140-360) Neutrophils (%) (Auto) 57.6 % (38.7-80.0) Lymphocytes (%) (Auto) 35.8 % (18.0-39.1) Monocytes (%) (Auto) 4.7 % (4.4-11.3) Eosinophils (%) (Auto) 1.5 % (0.0-6.0) Basophils (%) (Auto) 0.1 % (0.0-1.0) Neutrophils # (Auto) 5.4 (2.1-6.9) Lymphocytes # (Auto) 3.4 (1.0-3.2) Monocytes # (Auto) 0.4 (0.2-0.8) Eosinophils # (Auto) 0.1 (0.0-0.4) Basophils # (Auto) 0.0 (0.0-0.1) Absolute Immature Granulocyte (auto 0.03 x10e3/uL (0-0.1) Urine Color [place] (YELLOW) Urine Clarity Sl cloudy (CLEAR) Urine pH 7 (5 - 7) Urine Specific [place] 1.025 (1.010-1.025) Urine Protein 2+ (NEGATIVE) Urine Glucose (UA) Negative (NEGATIVE) Urine Ketones Negative (NEGATIVE) Urine Blood Large (NEGATIVE) Urine Nitrite Negative (NEGATIVE) Urine Bilirubin Negative (NEGATIVE) Urine Urobilinogen 0.2 mg/dL (0.2 - 1) Urine Leukocyte Esterase Negative (NEGATIVE) Urine RBC >50 /HPF (0-5) Urine WBC 11-20 /HPF (0-5) Urine Epithelial Cells Moderate /LPF (NONE) Urine Bacteria Few /HPF (NONE) Urine Test Negative (NEGATIVE) Sodium Level 139 mmol/L (136-145) Potassium Level 4.2 mmol/L (3.5-5.1) Chloride Level 106 mmol/L (98-107) Carbon Dioxide Level 20 mmol/L (22-29) Anion Gap 17.2 mmol/L (8-16) Creatinine 0.94 mg/dL (0.57-1.11) Estimat Glomerular Filtration Rate > 60 ML/MIN (60-) Glucose Level 188 mg/dL (74-118) Calcium Level 9.5 mg/dL (8.4-10.2) Total Bilirubin 0.2 mg/dL (0.2-1.2) Aspartate Amino Transf (AST/SGOT) 25 IU/L (5-34) Alanine Aminotransferase (ALT/SGPT) 33 IU/L (0-55) Alkaline Phosphatase 80 IU/L (40-150) Creatine Kinase 71 IU/L (29-168) Creatine Kinase MB 0.40 ng/mL (0-5.0) Troponin I < 0.001 ng/mL (0-0.300) Total Protein 7.5 g/dL (6.5-8.1) Albumin 3.6 g/dL (3.5-5.0) Globulin 3.9 g/dL (2.3-3.5) Albumin/Globulin Ratio 0.9 (0.8-2.0) Lab results reviewed: Yes Critical Care Time Subsequent provider I assumed direction of critical care for this patient from another provider of my specialty. Assessment & Plan Last Vital Signs Date Time Temp Pulse Resp B/P (MAP) Pulse Ox O2 Delivery O2 Flow Rate FiO2 12/18/19 13:39 116 16 144/79 99 12/18/19 13:05 98.5 Home Meds Reported Medications Buspirone Hcl (BUSPIRONE HCL) 5 Mg Tablet, 10 MG PO BID, #60 TAB 12/06/17 Sertraline Hcl (SERTRALINE HCL) 100 Mg Tablet, 100 MG PO HS, TAB 12/06/17 Medications in the ED Sodium Chloride 1,000 ml @ 0 mls/hr Q0M STAT IV ; Start 12/18/19 at 13:40; Stop 12/18/19 at 13:47; Status DC Morphine Sulfate 4 mg ONCE ONCE IV ; Start 12/18/19 at 13:45; Stop 12/18/19 at 13:46; Status UNV Ondansetron HCl 4 mg NOW STAT IV ; Start 12/18/19 at 13:40; Stop 12/18/19 at 13:41; Status UNV CELINA BARNETT, December 18, 2019 14:32
[2019-12-18 14:36] LABS: BLOOD UREA NITROGEN 13 mg/dL (7-26); BUN/CREATININE RATIO 14 (6-25)
[2019-12-18] MEDS ORDERED: ACETAMINOPHEN 325 MG TAB ONE (14:48)
[2019-12-18] MEDS ORDERED: ONDANSETRON HCL INJ 2MG/ML 2ML 2 MG/ML VIAL IV STA (14:48)
[2019-12-18] MEDS ORDERED: MORPHINE SULFATE INJ 4 MG/ML INJ 1ML IV ONE (15:00)
[2019-12-18] MEDS ORDERED: SODIUM CHLORIDE 0.9% 50ML 50 ML ONE (15:02)
[2019-12-18] MEDS ORDERED: IOPAMIDOL 370 MG/ML 200 ML INFUS..BTL INJ ONE (15:02)
--- NOTE | 2019-12-18 16:06 | Diagnostic Imaging Report ---
EXAMINATION: CT of the abdomen and pelvis with contrast. TECHNIQUE: Spiral CT images of the abdomen and pelvis were performed from the lung bases to the lesser trochanters after the intravenous administration of 100 cc of Isovue 370 and the oral administration of water. Coronal and sagittal reformatted images were obtained. COMPARISON: None. CLINICAL HISTORY:Abdominal pain and nausea since yesterday, back pain for one week, urinary frequency, prolonged menstrual period. DISCUSSION: ABDOMEN/PELVIS: LOWER THORAX:Linear opacities in the lingula and posterior left lower lobe, which may reflect subsegmental atelectasis or scarring. Moderate pleural thickening in the posterior left lower hemithorax HEPATOBILIARY: Diffuse hepatic steatosis. No focal lesions. No intra or extrahepatic biliary ductal dilation. GALLBLADDER: No radio-opaque stones or sludge. No wall thickening. SPLEEN: No splenomegaly. 1.1 cm fluid density lesion in the posterior aspect of the spleen (series 2, image 20) disease. PANCREAS: No focal masses or ductal dilatation. ADRENALS: No adrenal nodules. KIDNEYS/URETERS: No hydronephrosis, stones, or solid mass lesions. 7 mm hypodense lesion in the left interpolar region, which is too small to characterize. PELVIC ORGANS/BLADDER: Bladder and uterus are unremarkable. No adnexal masses. PERITONEUM/RETROPERITONEUM: No free air or fluid. LYMPH NODES: No intra-abdominal, retroperitoneal, pelvic or inguinal lymphadenopathy. VESSELS: The celiac trunk,superior and inferior mesenteric and bilateral renal arteries are patent The portal, superior mesenteric and splenic veins are patent. GI TRACT: No bowel dilation or evidence of obstruction. No pericolonic inflammatory changes. A short appendix is identified and normal in caliber. No wall thickening. BONES AND SOFT TISSUE: No aggressive lytic or suspicious sclerotic lesions. Tiny fat-containing umbilical hernia. IMPRESSION: 1. No acute abdominopelvic abnormalities. No bowel dilation or evidence of obstruction. 2. 1.1 cm hypodense lesion in the posterior spleen, which is indeterminate. This may represent a cyst or lymphangioma or small hemangioma. 3. Diffuse hepatic steatosis. Signed by: Dr. Ayush Jean M.D. on 12/18/2019 4:03 PM
[2019-12-18 16:20] LABS: PLATELET ESTIMATE ADEQUATE; PLATELET MORPHOLOGY COMMENT NORMAL; RBC MORPHOLOGY COMMENT ABNORMAL
[2019-12-18 16:21] LABS: HYPOCHROMASIA SLIGHT; MICROCYTOSIS SLIGHT
[2019-12-18 17:57] VITALS: BP 138/68
== END 2019-12-18 17:55 | disposition home or self-care (01) ==
LOC: ER 13:00
DX: R10.13 Epigastric pain (principal); E11.65 Type 2 diabetes mellitus with hyperglycemia; E78.5 Hyperlipidemia, unspecified; K21.9 Gastro-esophageal reflux disease without esophagitis; F41.9 Anxiety disorder, unspecified; Z86.73 Personal history of transient ischemic attack (TIA), and cerebral infarction without residual deficits
CPT/HCPCS: 36415; 74177; 80053; 81001; 81025; 82550; 82553; 83690; 84484; 85025; 99284; J2270; J2405; J7030; Q9967